=== PATIENT | male | born 1985 | race Caucasian/White ===

== ENCOUNTER 2023-02-17 12:57 | Emergency (ER) | payer SELFPAY ==
[~2023-02-17] VITALS: Ht 190.5 cm; Wt 127.0 kg
[2023-02-17 13:09] VITALS: BP_SYST 130; PULSE 97; RESP 18; TEMP 97.5; O2SAT 97
[2023-02-17] MEDS ORDERED: ceFAZolin SODIUM 2 GM VIAL IM ONE (14:00)
[2023-02-17] MEDS ORDERED: CEPH-548 PO (14:04)
== END 2023-02-17 15:00 | disposition home or self-care (01) ==
LOC: SED 12:57
DX: L03.114 Cellulitis of left upper limb (principal); Z85.6 Personal history of leukemia; Z79.899 Other long term (current) drug therapy
CPT/HCPCS: 99283